=== PATIENT | female | born 1935 | race American Indian/Alaskan Native ===

== ENCOUNTER 2017-03-04 06:15 | Day surgery (SDC) | payer MEDICARE, MEDICAID ==
[2017-03-04 07:09] VITALS: BMI 27.1
[2017-03-04 07:19] VITALS: RESP 20; TEMP 97.6; O2SAT 100
--- NOTE | 2017-03-04 09:26 | CP.SDSHP ---
Same Day Surgery H & P - History Proposed Procedure: colonoscopy Pre-Op Diagnosis: screening - Previous Medical/Surgical History Cardiac: Hypertension Comments: endometrial cancer s/p hysterectomy - Allergies Allergies: Allergies No Known Allergies Allergy (Unverified 04/11/13 10:03) - Physical Exam General Appearance: NAD Vital Signs: Vital Signs 03/04/17 07:09 Temperature 97.6 F Pulse Rate 84 Respiratory 20 Rate Blood Pressure 150/67 O2 Sat by Pulse 100 Oximetry Mental Status: Alert & Oriented x3 Neuro: WNL Heart: WNL Lungs: WNL GI: WNL - {Optional Preform as Required} Abdomen: WNL - Impression Pt. Evaluated Today:Candidate for Anesthesia & Procedure: Yes - Date & Time Date: 03/04/17 Time: 09:26 Short Stay Discharge - Short Stay Discharge Admitting Diagnosis/Reason for Visit: SCREENING Disposition: HOME/ ROUTINE
[2017-03-04] MEDS ORDERED: Propofol 10 mg/ml Inj (20 ML) ONE (09:33)
[2017-03-04] MEDS ORDERED: Lidocaine Hydrochloride 5 ML INJ ONE (09:33)
[2017-03-04 10:34] VITALS: BP 129/69; PULSE 73
== END 2017-03-04 10:48 | disposition home or self-care (01) ==
LOC: C.ENDO 06:15
PROVIDERS: ATTEND Internal Medicine Gastroenterology
DX: Z12.11 Encounter for screening for malignant neoplasm of colon (principal); K57.30 Diverticulosis of large intestine without perforation or abscess without bleeding; K64.1 Second degree hemorrhoids
CPT/HCPCS: 45378; J2704